=== PATIENT | female | born 1990 | race Caucasian/White ===

== ENCOUNTER 2021-06-27 12:19 | Emergency (ER) | payer OTHER ==
[2021-06-27 12:27] VITALS: RESP 18
[2021-06-27] MEDS ORDERED: DIPH,PERTUS(ACELL)TETVAC-LF 0.5 ML VIAL IM ONE (12:36)
--- NOTE | 2021-06-27 12:41 | ED ---
General Adult HPI - General Chief complaint: Extremity Injury, Lower Stated complaint: IHS Lt Hand Injury Time Seen by Provider: 06/27/21 12:32 Source: patient, RN notes reviewed Mode of arrival: ambulatory Limitations: no limitations - History of Present Illness Initial comments: 30-year-old female presents emergency Department chief complaint of left hand injury. Patient states that at work yesterday she hit her hand caught in the conveyor belt. Patient states that she has pain on the medial portion of her hand, over the second third digit she does have some multiple abrasions. Patient is neurovascular intact patient is unsure when her last tetanus was. - Related Data Home Medications Medication Instructions Recorded Confirmed DULoxetine HCL [Cymbalta] 30 mg PO HS 06/27/21 06/27/21 Norgestimate-Ethinyl Estradiol 1 tab PO HS 06/27/21 06/27/21 [Sprintec 28 Day Tablet] Allergies Allergy/AdvReac Type Severity Reaction Status Date / Time No Known Allergies Allergy Verified 06/27/21 13:30 Review of Systems ROS Statement: Those systems with pertinent positive or pertinent negative responses have been documented in the HPI. ROS Other: All systems not noted in ROS Statement are negative. Past Medical History Past Medical History: No Reported History History of Any Multi-Drug Resistant Organisms: None Reported Past Surgical History: No Surgical Hx Reported Past Psychological History: Anxiety Smoking Status: Current some day smoker Past Alcohol Use History: None Reported Past Drug Use History: None Reported General Exam General appearance: alert, in no apparent distress Head exam: Present: atraumatic, normocephalic, normal inspection Eye exam: Present: normal appearance, PERRL, EOMI. Absent: scleral icterus, conjunctival injection, periorbital swelling Respiratory exam: Present: normal lung sounds bilaterally. Absent: respiratory distress, wheezes, rales, rhonchi, stridor Cardiovascular Exam: Present: regular rate, normal rhythm, normal heart sounds. Absent: systolic murmur, diastolic murmur, rubs, gallop, clicks Extremities exam: Present: other (Abrasions on the second third and fifth digit, neurovascular intact mild tenderness primarily over the fifth metacarpal region) Course Vital Signs 06/27/21 12:23 Temperature 97.3 F L Pulse Rate 86 Respiratory 18 Rate Blood Pressure 115/79 O2 Sat by Pulse 100 Oximetry Medical Decision Making - Medical Decision Making 30-year-old presented for left hand injury x-ray shows questionable carpal fracture. Patient was splinted and will follow-up with orthopedics for return to work. Disposition Clinical Impression: Fracture of metacarpal of left hand, closed Disposition: HOME SELF-CARE Condition: Stable Instructions (If sedation given, give patient instructions): Wrist Fracture in Adults (ED) Additional Instructions: Please return to the Emergency Department if symptoms worsen or any other concerns. Is patient prescribed a controlled substance at d/c from ED?: No Referrals: Nonstaff,Physician [Primary Care Provider] - 1-2 days Velasquez Lund DO [Doctor of Osteopathic Medicine] - 1-2 days Time of Disposition: 13:35
--- NOTE | 2021-06-27 13:16 | XR ---
EXAMINATION TYPE: XR hand complete LT DATE OF EXAM: 06/27/2021 COMPARISON: None available INDICATION: 30-year-old female, pain TECHNIQUE: Standard 3 views of the left hand FINDINGS: Subtle cortical irregularity of the dorsal aspect of the proximal carpal bones in the lateral view, p ossibly artifactual. Questionable slightly negative ulnar variance. No definite acute fracture line i dentified otherwise. No other significant bony or articular abnormality seen. IMPRESSION: Questionable cortical irregularity of the dorsal aspect of the proximal carpal bones in the lateral v iew, possibly artifactual, please correlate clinically. No definite acute fracture line identified ot herwise.
[2021-06-27 13:51] VITALS: BP 115/75; PULSE 80; TEMP 98.9
== END 2021-06-27 13:50 | disposition home or self-care (01) ==
LOC: EC 12:19
DX: S62.397A Other fracture of fifth metacarpal bone, left hand, initial encounter for closed fracture (principal); F41.9 Anxiety disorder, unspecified; F17.200 Nicotine dependence, unspecified, uncomplicated; Z23 Encounter for immunization; W22.8XXA Striking against or struck by other objects, initial encounter
CPT/HCPCS: 90471; 90715; 99283

== ENCOUNTER 2021-07-18 13:13 | Emergency (ER) | payer OTHER ==
[2021-07-18 13:33] VITALS: BP 119/70; PULSE 74; RESP 20; TEMP 98
[2021-07-18] MEDS ORDERED: KETOROLAC 15 MG/ML 1 ML VIAL IM STA (13:45)
--- NOTE | 2021-07-18 13:51 | ED ---
General Adult HPI - General Chief complaint: Extremity Injury, Upper Stated complaint: IHS-R arm injury Time Seen by Provider: 07/18/21 13:40 Source: patient, RN notes reviewed, old records reviewed Mode of arrival: ambulatory Limitations: no limitations - History of Present Illness Initial comments: Well-appearing 30-year-old presents to the emergency room with complaints of right hand and arm pain. Patient states was at work and right hand was pulled into the roller up to her elbow. She has pain that radiates from her hand up to her mid upper arm. She has full range of motion. Bruising noted to right hand no open wounds. Immunizations up-to-date. -: hour(s) (2) Location: right, upper extremity (hand wrist and forearm) Severity scale (1-10): 7 Quality: aching, constant Consistency: constant Improves with: none Worsens with: movement Associated Symptoms: denies other symptoms Treatments Prior to Arrival: none - Related Data Home Medications Medication Instructions Recorded Confirmed DULoxetine HCL [Cymbalta] 30 mg PO HS 06/27/21 06/27/21 Norgestimate-Ethinyl Estradiol 1 tab PO HS 06/27/21 06/27/21 [Sprintec 28 Day Tablet] Previous Rx's Medication Instructions Recorded Ibuprofen [Motrin] 600 mg PO Q8HR PRN #30 tab 07/18/21 Allergies Allergy/AdvReac Type Severity Reaction Status Date / Time No Known Allergies Allergy Verified 07/18/21 13:30 Review of Systems ROS Statement: Those systems with pertinent positive or pertinent negative responses have been documented in the HPI. ROS Other: All systems not noted in ROS Statement are negative. Past Medical History Past Medical History: No Reported History History of Any Multi-Drug Resistant Organisms: None Reported Past Surgical History: No Surgical Hx Reported Past Psychological History: Anxiety Smoking Status: Current some day smoker Past Alcohol Use History: None Reported Past Drug Use History: None Reported General Exam Limitations: no limitations General appearance: alert, in no apparent distress Eye exam: Present: normal appearance ENT exam: Present: normal exam, normal oropharynx, mucous membranes moist Expanded Teeth exam: Present: dental caries Neck exam: Present: full ROM Respiratory exam: Present: normal lung sounds bilaterally. Absent: respiratory distress, accessory muscle use, decreased breath sounds Cardiovascular Exam: Present: regular rate, normal rhythm, normal heart sounds Right Upper Arm exam: Present: normal inspection, full ROM. Absent: tenderness Elbow exam: Present: normal inspection, full ROM. Absent: tenderness Forearm Wrist exam: Present: normal inspection, full ROM, tenderness. Absent: swelling, abrasion, laceration, ecchymosis, deformity, crepitus, tenderness over anatomical snuff box, pain with axial thumb loading Hand Wrist exam: Present: normal inspection, tenderness, ecchymosis (3rd MCP joint , 4th phalange). Absent: erythema Neuro motor exam: Present: wrist extension intact, thumb opposition intact, thumb IP flexion intact, thumb adduction intact, fingers 2-5 abduction intact Neurosensory exam: Present: 2-point discrimination, radial nerve intact, ulnar nerve intact, median nerve intact Vascular: Present: normal capillary refill, radial pulse. Absent: vascular compromise Neurological exam: Present: alert, oriented X3 Psychiatric exam: Present: normal affect, normal mood Skin exam: Present: warm, dry, normal color. Absent: cyanosis, diaphoretic, pallor Course Vital Signs 07/18/21 13:30 Temperature 98.0 F Pulse Rate 74 Respiratory 20 Rate Blood Pressure 119/70 O2 Sat by Pulse 100 Oximetry Medical Decision Making - Medical Decision Making 30-year-old presents, sent by employer with right hand and arm pain after pulled into a roller up to her elbow. She has pain that radiates from her hand up to her mid upper arm. Upon exam she has full range of motion of the right hand, wrist and forearm. She is neurovascularly intact. X-ray of the wrist and hand show no acute fracture or dislocation. No snuffbox tenderness. This appears to be a contusion of the right hand. She was given Toradol in the emergency room and a prescription for Motrin. She was directed to increase her fluid intake, and return to the emergency room with any new or concerning symptoms. Follow-up with her primary care doctor next week. Case discussed with Dr. Martin Witt Clinical Impression: Hand contusion Disposition: HOME SELF-CARE Condition: Good Instructions (If sedation given, give patient instructions): Hand Sprain (ED), Hematoma (ED) Additional Instructions: Take Motrin 600 mg every 8 hours for the next 3 days. Return to the emergency room with any new or concerning symptoms including numbness, tingling, or increased pain. Follow-up with the primary care doctor next week. Prescriptions: Ibuprofen [Motrin] 600 mg PO Q8HR PRN #30 tab PRN Reason: Pain Is patient prescribed a controlled substance at d/c from ED?: No Referrals: Gene Rowland DO [Primary Care Provider] - 1-2 days Time of Disposition: 15:29
--- NOTE | 2021-07-18 14:39 | XR ---
EXAMINATION TYPE: XR forearm RT, XR wrist complete RT, XR hand complete RT DATE OF EXAM: 07/18/2021 CLINICAL HISTORY: Injury at work with pain. TECHNIQUE: Two views of the right forearm are obtained. 3 views right wrist and hands. Additional fou rth scaphoid view right wrist. COMPARISON: None. FINDINGS: There is no acute fracture or dislocation seen in the right radius or ulna. The right elb ow joint appears within normal limits. The overlying soft tissue appears within normal limits. Images of right wrist show no acute displaced fracture. Carpal joint spaces are maintained. Overlying soft tissue is unremarkable. Images of right hand show no acute displaced fracture. The joint spaces are maintained. Overlying sof t tissues are normal. IMPRESSION: There is no acute fracture or dislocation seen in the right hand, wrist, or forearm.
== END 2021-07-18 16:54 | disposition home or self-care (01) ==
LOC: EC 13:13
DX: S60.221A Contusion of right hand, initial encounter (principal); F41.9 Anxiety disorder, unspecified; F17.200 Nicotine dependence, unspecified, uncomplicated; W23.1XXA Caught, crushed, jammed, or pinched between stationary objects, initial encounter
CPT/HCPCS: 99283; 96372; 73090; 73110; 73130; J1885

== ENCOUNTER 2023-04-13 14:51 | Emergency (ER) | payer OTHER ==
[2023-04-13 15:15] VITALS: RESP 18
[2023-04-13] MEDS ORDERED: ASPIRIN 81 MG PO STA (16:50)
--- NOTE | 2023-04-13 16:53 | ED ---
Chest Pain HPI - General Chief Complaint: Chest Pain Stated Complaint: Chest Pain,Sob Time Seen by Provider: 04/13/23 16:21 Source: patient Mode of arrival: ambulatory Limitations: no limitations - History of Present Illness MD Complaint: chest pain -: month(s) Onset: during exertion Pain Location: substernal Pain Radiation: none Severity: mild Quality: sharp Consistency: intermittent Improves With: nothing Worsens With: nothing Treatments Prior to Arrival: none - Related Data Home Medications Medication Instructions Recorded Confirmed Levothyroxine Sodium [Synthroid] 75 mcg PO DAILY 04/13/23 04/13/23 Allergies Allergy/AdvReac Type Severity Reaction Status Date / Time No Known Allergies Allergy Verified 04/13/23 17:23 Review of Systems ROS Statement: Those systems with pertinent positive or pertinent negative responses have been documented in the HPI. ROS Other: All systems not noted in ROS Statement are negative. Constitutional: Denies: fever, chills Respiratory: Denies: cough, dyspnea Cardiovascular: Reports: chest pain. Denies: palpitations, edema Gastrointestinal: Denies: abdominal pain, nausea, vomiting Genitourinary: Denies: dysuria, hematuria Musculoskeletal: Denies: back pain Skin: Denies: rash Neurological: Denies: headache EKG Findings - EKG Results: EKG: interpreted by PJ RÍOS, sinus rhythm (Rate 69 bpm), normal axis, normal QRS, normal ST/T Past Medical History Past Medical History: Thyroid Disorder History of Any Multi-Drug Resistant Organisms: None Reported Past Surgical History: Orthopedic Surgery, Tonsillectomy Additional Past Surgical History / Comment(s): Jaw surgery, ankle surgery Past Psychological History: Anxiety Smoking Status: Current some day smoker Past Alcohol Use History: None Reported Past Drug Use History: None Reported General Exam Limitations: no limitations General appearance: alert, in no apparent distress Head exam: Present: atraumatic, normocephalic Eye exam: Present: normal appearance. Absent: scleral icterus, conjunctival injection ENT exam: Present: mucous membranes moist, other (Extensive dental caries) Neck exam: Present: normal inspection. Absent: tenderness, meningismus, full ROM Respiratory exam: Present: normal lung sounds bilaterally, chest wall tenderness. Absent: respiratory distress, wheezes, rales, rhonchi, stridor, accessory muscle use Cardiovascular Exam: Present: regular rate, normal rhythm, normal heart sounds. Absent: systolic murmur, diastolic murmur, rubs, gallop GI/Abdominal exam: Present: soft. Absent: distended, tenderness, guarding, rebound, rigid Extremities exam: Present: normal inspection, normal capillary refill. Absent: pedal edema, calf tenderness Back exam: Present: normal inspection. Absent: CVA tenderness (R), CVA tenderness (L) Neurological exam: Present: alert Skin exam: Present: warm, dry, intact, normal color. Absent: rash Course Vital Signs 04/13/23 04/13/23 04/13/23 14:52 16:26 18:42 Temperature 98.1 F Pulse Rate 74 64 67 Respiratory 18 18 18 Rate Blood Pressure 143/94 115/80 111/77 O2 Sat by Pulse 100 100 100 Oximetry 04/13/23 20:04 Temperature 98.2 F Pulse Rate 60 Respiratory 18 Rate Blood Pressure 107/66 O2 Sat by Pulse 100 Oximetry Chest Pain MDM - [facility] The patient had chest x-ray that I interpreted as negative for acute infiltrate, pneumothorax, congestive heart failure Was pt. sent in by a medical professional or institution (, PA, TUMBLING MACHINE OPERATOR, urgent care, hospital, or long-term...) When possible be specific @ -[No] Did you speak to anyone other than the patient for history (EMS, parent, family, police, friend...)? What history was obtained from this source @ -[No] Did you review nursing and triage notes (agree or disagree)? Why? @ -[I reviewed and agree with nursing and triage notes] Were old charts reviewed (outside hosp., previous admission, EMS record, old EKG, old radiological studies, urgent care reports/EKG's, long-term records)? Report findings @ -[No old charts were reviewed] Differential Diagnosis (chest pain, altered mental status, abdominal pain women, abdominal pain men, vaginal bleeding, weakness, fever, dyspnea, syncope, headache, dizziness, GI bleed, back pain, seizure, CVA, palpatations, mental health, musculoskeletal)? @ -[Differential Chest Pain: Stable Angina, Unstable Angina, STEMI, NSTEMI Aortic Dissection, Pneumothorax, Musculoskeletal, Esophageal Spasm GERD, Cholecystitis, Pancreatitis, Zoster, this is not meant to be an all-inclusive list. EKG interpreted by me (3pts min.). @ -[I interpreted As above] X-rays interpreted by me (1pt min.). @ -[I interpreted as above CT interpreted by me (1pt min.). @ -[None done] U/S interpreted by me (1pt. min.). @ -[None done] What testing was considered but not performed or refused? (CT, X-rays, U/S, labs)? Why? @ -[None] What meds were considered but not given or refused? Why? @ -[None] Did you discuss the management of the patient with other professionals (professionals i.e. , PA, TUMBLING MACHINE OPERATOR, lab, RT, psych nurse, social worker school, hand packer, teacher, mechanical engineering officer, binder caser)? Give summary @ -[No] Was smoking cessation discussed for >3mins.? @ -[No] Was critical care preformed (if so, how long)? @ -[No] Were there social determinants of health that impacted care today? How? (Homelessness, low income, unemployed, alcoholism, drug addiction, transportation, low edu. Level, literacy, decrease access to med. care, long-term, rehab)? @ -[No] Was there de-escalation of care discussed even if they declined (Discuss DNR or withdrawal of care, Hospice)? DNR status @ -[No] What co-morbidities impacted this encounter? (DM, HTN, Smoking, COPD, CAD, Cancer, CVA, ARF, Chemo, Hep., AIDS, mental health diagnosis, sleep apnea, morbid obesity)? @ -[None] Was patient admitted / discharged? Hospital course, mention meds given and route, prescriptions, significant lab abnormalities, going to OR and other pertinent info. @ -[hospital course] Undiagnosed new problem with uncertain prognosis? @ -[No] Drug Therapy requiring intensive monitoring for toxicity (Heparin, Nitro, Insulin, Cardizem)? @ -[No] Were any procedures done? @ -[No] Diagnosis/symptom? @ -[Acute chest pain Acute, or Chronic, or Acute on Chronic? @ -[Acute Uncomplicated (without systemic symptoms) or Complicated (systemic symptoms)? @ -[Uncomplicated Side effects of treatment? @ -[No] Exacerbation, Progression, or Severe Exacerbation? @ -[No] Poses a threat to life or bodily function? How? (Chest pain, USA, MD, pneumonia, PE, COPD, DKA, ARF, appy, cholecystitis, CVA, Diverticulitis, Homicidal, Suicidal, threat to staff... and all critical care pts) @ -[No] Disposition Clinical Impression: Chest pain Disposition: HOME SELF-CARE Condition: Good Instructions (If sedation given, give patient instructions): Chest Pain (ED) Is patient prescribed a controlled substance at d/c from ED?: No Referrals: Minoo Barros MD [Primary Care Provider] - 1-2 days Angel Barahona MD [STAFF PHYSICIAN] - 1-2 days Forms: Work/School Release
[2023-04-13 18:16] LABS: Basophils % (A) 1 %; Eosinophils # (A) 0.3 k/uL (0-0.7); Eosinophils % (A) 4 %; HCT 44.8 % (34.0-46.0); HGB 14.7 gm/dL (11.4-16.0); Lymphocytes % (A) 40 %; MCH 29.4 pg (25.0-35.0); MCHC 32.8 g/dL (31.0-37.0); MCV 89.6 fL (80.0-100.0); Mean Platelet Volume 7.7; Monocytes # (A) 0.3 k/uL (0-1.0); Monocytes % (A) 3 %; Neutrophils # (A) 3.9 k/uL (1.3-7.7); Neutrophils % (A) 51 %; Platelet Count 356 k/uL (150-450); RDW 12.8 % (11.5-15.5); WBC 7.7 k/uL (3.8-10.6)
[2023-04-13 18:26] LABS: INR 0.9 (<1.2); Partial Thromboplastin Time 25.4 sec (22.0-30.0); Prothrombin Time 10.3 sec (10.0-12.5)
[2023-04-13 18:35] LABS: ALT 14 U/L (4-34); AST 25 U/L (14-36); African American GFR (CKD) >90 (>60 ml/min/1.73 sqM); Albumin 4.8 g/dL (3.5-5.0); Alkaline Phosphatase 60 U/L (38-126); Anion Gap 12 mmol/L; Blood Urea Nitrogen 7 mg/dL (7-17); Calcium 9.3 mg/dL (8.4-10.2); Carbon Dioxide 23 mmol/L (22-30); Chloride 104 mmol/L (98-107); Glucose 86 mg/dL (74-99); Magnesium 2.1 mg/dL (1.6-2.3); Non-African American GFR(CKD) >90 (>60 ml/min/1.73 sqM); Sodium 139 mmol/L (137-145); Total Bilirubin 0.6 mg/dL (0.2-1.3)
[2023-04-13 18:37] LABS: Potassium 4.4 mmol/L (3.5-5.1)
--- NOTE | 2023-04-13 18:43 | XR ---
EXAMINATION TYPE: XR chest 2V DATE OF EXAM: 04/13/2023 COMPARISON: None INDICATION: Chest pain short of breath TECHNIQUE: Frontal and lateral views of the chest are obtained. FINDINGS: The heart size is normal. The pulmonary vasculature is normal. The lungs are clear. IMPRESSION: 1. No acute pulmonary process.
[2023-04-13 19:55] LABS: C Reactive Protein 0.6 mg/dL (<1.0)
[2023-04-13 20:17] VITALS: BP 107/66; PULSE 60; TEMP 98.2
== END 2023-04-13 20:11 | disposition home or self-care (01) ==
LOC: EC 14:51
DX: R07.9 Chest pain, unspecified (principal); E07.9 Disorder of thyroid, unspecified; F17.200 Nicotine dependence, unspecified, uncomplicated; Z79.890 Hormone replacement therapy; Z86.59 Personal history of other mental and behavioral disorders
CPT/HCPCS: 36415; 71046; 80053; 83735; 84443; 84484; 85025; 85379; 85610; 85730; 86140; 93005; 99285